=== PATIENT | female | born 1930 | race Caucasian/White ===

== ENCOUNTER 2016-05-31 10:10 | Emergency (ER) | payer OTHER ==
[~2016-05-31] VITALS: Ht 157.5 cm; Wt 63.6 kg
[~2016-05-31 10:10] MED LIST: ACETAMINOPHEN325 M1 PO; ALLERGY RELIEF180 MG PO; ALLOPURINOL100 MG PO; ALPHAGAN P 0.1% BOTH EYES; ALPRAZOLAM0.25 M2 PO; ALPRAZOLAM1 MG PO; AMBIEN5 MG PO; ANTACID MAXIM1000 MG PO; ANTACID500 MG PO; ARICEPT10 MG PO; ASCORBIC ACID500 M3 PO; BACTERICIN30 GM TP; BUSPAR10 MG PO; BUSPAR5 MG PO; BUSPIRONE HCL15 MG PO; BUSPIRONE HCL5 MG PO; CEFTIN500 MG PO; CERAVE MOISTUR TP; CIPRO500 MG PO; COLACE100 MG PO; COUMADIN; COUMADIN,JANTOVE2 MG PO; COUMADIN2 MG PO; COUMADIN2.5 MG PO; Combigan Ophth Soln BOTH EYES; DAILY VALUE1 EACH PO; FEOSOL325 MG PO; FEROSUL325 MG PO; FEXOFENADINE H180 MG PO; FISH OIL SOFTG1 EACH PO; FLORASTOR250 MG PO; FUROSEMIDE20 MG PO; HYDROCHLOROTHIA25 MG PO; ISORDIL,SORBITR20 MG PO; ISOSORBIDE DINI20 MG PO; KEFLEX500 MG PO; LASIX20 MG PO; LUMIGAN 0.50 DROP/22 BOTH EYES; MULTI VITAMIN1 EACH PO; MYCOSTATIN1 APPLICAT TP; NEURONTIN100 MG PO; NEVANAC 0.60 DROP/3 RIGHT EYE; NYSTOP60 GM TP; OMEGA 3-6-91200 MG PO; PAIN RELIEVER325 MG PO; PATANOL OP100 DROP/5 BOTH EYES; PERCOCET 5/31 TABLET PO; PRESERVISIO1 CAPSULE PO; PRESERVISION S1 EACH PO; PRESERVISION T1 EACH PO; PRILOSEC OTC20 M1 PO; PROCTOZONE-HC30 GM PR; REMERON15 M2 PO; SENEXON-S TABL1 EACH PO; SENNA PLUS TAB1 EACH PO; SPIRIVA1 INHALATI IH; SYSTANE 0.3-0.1 EACH BOTH EYES; TOPROL XL100 MG PO; TRAZODONE HCL50 MG PO; TRUSOPT5 ML RIGHT EYE; TUMS500 MG PO; TYLENOL EXTRA500 MG PO; ULTRAM50 MG PO; VITAMIN C500 M1 PO; WARFARIN SODIUM2 MG PO; XANAX0.25 MG PO; ZYLOPRIM100 MG PO
[2016-05-31 10:44] LABS: POINT-OF-CARE METER ID UU14100415
[2016-05-31 10:56] LABS: MCHC 30.3 G/DL (30.0-36.0); MCV 99.2 FL (83-99); MEAN PLAT.VOLUME 10.6 uM^3 (9.5-12.4); PLATELET COUNT 122 K/uL (156-360); RBC DIS.WIDTH-CV 15.8 % (11.8-14.6); RBC DIS.WIDTH-SD 56.2 % (39-53); RED BLOOD COUNT 3.73 M/uL (3.80-5.20); WHITE BLOOD COUNT 6.2 K/uL (4.1-10.2)
[2016-05-31 10:57] LABS: BASE EXCESS 9.7 mEq/L (-3 to +3); BICARBONATE 37.9 mEq/L (22-26); COMMENTS - BLOOD GASES C+; PCO2 67 mm Hg (35-45); PO2 107 mm Hg (80-100); pH 7.36 (7.35-7.45)
[2016-05-31 10:58] LABS: DEVICE NC; O2 FLOW 2 L/MIN; SITE LR
[2016-05-31 11:00] LABS: EOSINOPHIL (%) 5.5 % (0-5); EOSINOPHIL COUNT 0.3 K/uL (0-0.3); IMMATURE GRANULOCYTE (%) 0.3 % (0.0-0.7); IMMATURE GRANULOCYTE COUNT 0.2 K/uL; MONOCYTE (%) 11.7 % (3-12); MONOCYTE COUNT 0.7 K/uL (0-0.8); NEUTROPHIL (%) 65.8 % (45-76); NEUTROPHIL COUNT 4.1 K/uL (1.8-6.4)
[2016-05-31 11:13] LABS: CHLORIDE 102 mEq/L (99-109); SODIUM 142 mEq/L (136-147)
[2016-05-31 11:14] LABS: GLUCOSE 87 mg/dL (70-99)
[2016-05-31 11:15] LABS: ANION GAP 7 MEQ/L (2-14)
[2016-05-31 11:16] LABS: TOTAL BILIRUBIN 0.7 mg/dL (0.0-1.0)
[2016-05-31 11:17] LABS: ALKALINE PHOSPHATASE 88 IU/L (3-129)
[2016-05-31 11:18] LABS: GFR ESTIMATE (CALCULATED) 56 mL/min/
[2016-05-31 11:19] LABS: UREA NITROGEN (BUN) 24 mg/dL (9-23)
[2016-05-31 11:20] LABS: TROP-I INTERPRETATION NEGATIVE; TROPONIN-I 0.02 ng/mL (0.0-0.30)
[2016-05-31 11:21] LABS: PROTHROMBIN TIME 20.4 (9.2-11.2)
[2016-05-31 12:15] LABS: ADD MIUA? NO; BILIRUBIN SMALL; BLOOD NEGATIVE; COLOR DK YELLOW ((YELLOW)); GLUCOSE (STRIP) NEGATIVE; KETONES TRACE; LEUKOCYTES NEGATIVE; NITRITE NEGATIVE; PROTEIN (STRIP) 30; SPECIFIC GRAVITY 1.025 (1.000-1.030); UCUL ADDED? NO
[2016-05-31 15:04] VITALS: BP 123/55
== END 2016-05-31 15:30 ==
LOC: EME → EDBD 10:10 → EME 10:10 → EDSEX 10:10 → EME 15:30
PROVIDERS: Emergency Medicine
DX: R41.82 Altered mental status, unspecified (principal); J44.0 Chronic obstructive pulmonary disease with (acute) lower respiratory infection; J18.9 Pneumonia, unspecified organism; I10 Essential (primary) hypertension; K21.9 Gastro-esophageal reflux disease without esophagitis; F03.90 Unspecified dementia, unspecified severity, without behavioral disturbance, psychotic disturbance, mood disturbance, and anxiety; Z95.0 Presence of cardiac pacemaker; Z85.828 Personal history of other malignant neoplasm of skin; Z79.01 Long term (current) use of anticoagulants; Z87.891 Personal history of nicotine dependence
CPT/HCPCS: 36600; 70450; 71010; 80053; 81003; 82803; 82948; 83605; 83880; 84484; 85025 91; 85610; 87040; 93005; 99281; 99285; J0692; J7030; J7050

== ENCOUNTER 2016-12-09 13:25 | Day surgery (SDC) | payer OTHER ==
[~2016-12-09] VITALS: Ht 152.4 cm; Wt 61.2 kg
[~2016-12-09 13:25] MED LIST changes: +CELEXA20 MG PO; -COUMADIN2.5 MG PO; +COUMADIN3 MG PO; +DEPAKOTE SPRIN125 MG PO; +FUROSEMIDE40 MG PO; +HYDROCODON-ACE1 EAC7 PO; +HYDROCORTISON28.4 GM TP; +LORAZEPAM0.5 MG PO; +MELATONIN3 MG PO; +MOBIC7.5 MG PO; +NAMENDA XR28 MG PO; +NORCO 5/3251 TABLET PO; +OMEPRAZOLE20 MG PO; +POTASSIUM CHLO20 ME2 PO
== END 2016-12-09 18:06 ==
LOC: CATH 13:25
DX: Z45.010 Encounter for checking and testing of cardiac pacemaker pulse generator [battery] (principal); I49.5 Sick sinus syndrome; I48.2 Chronic atrial fibrillation; I10 Essential (primary) hypertension; J44.9 Chronic obstructive pulmonary disease, unspecified; K21.9 Gastro-esophageal reflux disease without esophagitis; F03.90 Unspecified dementia, unspecified severity, without behavioral disturbance, psychotic disturbance, mood disturbance, and anxiety; Z88.2 Allergy status to sulfonamides; Z79.01 Long term (current) use of anticoagulants
CPT/HCPCS: 93005; C1786; J0690; J0696; J2250; J3010; J7050; S0020